=== PATIENT | male | born 1950 | race Caucasian/White ===

== ENCOUNTER → 2016-06-14 | Outpatient (REF) ==
[~2016-06-14] MED LIST: NO HOME MEDICATIONS
[2016-06-14 17:25] LABS: PSA-TOTAL 0.56 ng/mL (0-4)
[2016-06-14 18:08] LABS: THYROID STIMULATING HORMONE 2.26 uIU/mL (0.465-4.680)
== END ==
LOC: ZLAB.WCH 14:46
PROVIDERS: Internal Medicine
DX: Z01.89 Encounter for other specified special examinations (principal)
CPT/HCPCS: G0103

== ENCOUNTER → 2017-03-02 | Outpatient (REF) | LOC: ZLAB.WCH 18:10 | DX: Z01.89 Encounter for other specified special examinations (principal) ==

== ENCOUNTER → 2017-10-10 | Outpatient (REF) ==
[2017-10-10 15:41] LABS: PSA-TOTAL 1.69 ng/mL (0-4); THYROID STIMULATING HORMONE 1.91 uIU/mL (0.465-4.680)
== END ==
LOC: ZLAB.WCH 14:39
PROVIDERS: Internal Medicine
DX: Z01.89 Encounter for other specified special examinations (principal)
CPT/HCPCS: G0103

== ENCOUNTER 2018-07-20 12:36 | Emergency (ER) | payer BC, MEDICARE ==
[~2018-07-20] VITALS: Ht 170.2 cm; Wt 90.0 kg
[2018-07-20 12:41] VITALS: TEMP 98.2
[2018-07-20] MEDS ORDERED: ASPIRIN 81M81 MG/TA2 PO (12:52)
[2018-07-20] MEDS ORDERED: PRILOSEC 20MG20 MG PO (12:52)
[2018-07-20] MEDS ORDERED: ZOCOR 20MG20 MG PO (12:53)
[2018-07-20 13:10] LABS: BASO % 0.1 % (0.0-2.0); EOS # 0.2 (0.0-0.7); EOS % 2.6 % (0-4.0); GRAN # 4.4 (1.4-6.5); GRAN % 64.1 % (42.2-75.2); HEMATOCRIT 43.5 % (42.0-52.0); HEMOGLOBIN 14.7 g/dl (13.5-18.0); LYMPH # 1.8 (1.2-3.4); LYMPH % 25.5 % (20.0-51.0); MEAN CELL VOLUME 92 fl (80.0-100.0); MEAN CORPUSCULAR HEMOGLOBIN 31 pg (27.0-31.0); MEAN CORPUSCULAR HGB CONC 34 g/dl (33.0-37.0); MEAN PLATELET VOLUME 9.3 fl (7.4-10.4); MONO # 0.5 (0.1-0.6); MONO % 7.6 % (1.7-9.3); PLATELET COUNT 181 K/mm3 (130-400); RED BLOOD COUNT 4.71 M/mm3 (4.20-5.60); REDCELL DISTRIBUTION WIDTH-CV 12.7 % (11.5-14.5)
[2018-07-20 13:21] LABS: ALANINE AMINOTRANSFERASE 27 U/L (21-72); ALBUMIN 4.1 gm/dL (3.5-5.0); ALKALINE PHOSPHATASE 61 U/L (50-136); ANION GAP 8 mmol/L (7-16); AST,SGOT 21 U/L (15-37); BILIRUBIN,TOTAL 0.5 mg/dL (0.0-1.0); BLOOD UREA NITROGEN 12 mg/dL (9-20); CALCIUM 9.2 mg/dL (8.4-10.2); CARBON DIOXIDE 29 mmol/L (22-30); CHLORIDE 102 mmol/L (98-107); CREATININE, serum 0.95 (0.66-1.25); GLUCOSE 91 mg/dL (74-106); MAGNESIUM 2.3 mg/dL (1.6-2.3); POTASSIUM 4.7 mmol/L (3.4-5.0); SODIUM 138 mmol/L (137-145); TOTAL PROTEIN 6.8 gm/dL (6.4-8.2)
[2018-07-20 13:48] LABS: TROPONIN-I < 0.012 ng/mL (0.000-0.035)
[2018-07-20] MEDS ORDERED: AMOXICILLIN 8751 TAB PO (14:04)
[2018-07-20 14:37] VITALS: BP 151/88; PULSE 53
== END 2018-07-20 14:38 | disposition home or self-care (01) ==
LOC: COL.ER 12:36
PROVIDERS: Emergency Medicine
DX: I49.3 Ventricular premature depolarization (principal); I49.1 Atrial premature depolarization; R09.81 Nasal congestion; Z79.82 Long term (current) use of aspirin; Z95.5 Presence of coronary angioplasty implant and graft

== ENCOUNTER → 2019-08-19 | Outpatient (REF) ==
[~2019-08-19] MED LIST changes: +AMOXICILLIN 8751 TAB PO; +ASPIRIN 81M81 MG/TA2 PO; +PRILOSEC 20MG20 MG PO; +ZOCOR 20MG20 MG PO
== END ==
LOC: COL.CARD 14:16
DX: Z01.810 Encounter for preprocedural cardiovascular examination (principal)

== ENCOUNTER → 2023-03-29 | Outpatient (CLI) | payer MEDICARE, BC | LOC: COL.RAD 13:48 | DX: M79.661 Pain in right lower leg (principal); Z96.651 Presence of right artificial knee joint ==